=== PATIENT | male | born 1950 | race Caucasian/White ===

== ENCOUNTER 2022-07-22 05:18 | Observation (INO) ==
--- NOTE | 2022-07-07 08:39 | PAT Medication Instructions ---
Medication Instructions Date of Service July 07, 2022 Home Medications Medication Instructions Recorded Meagan Gilliland #1 ea 03/31/22 ascorbate calcium (vitamin C) 500 mg tablet 500 mg PO QAM aspirin 81 mg tablet,delayed release (Adult Low Dose Aspirin) 81 mg PO HS coenzyme Q10 75 mg capsule (Ultra CoQ10) 75 mg PO QPM krill oil 500 mg capsule 500 mg PO QAM lisinopril 20 mg tablet 20 mg PO QAM multivitamin 1 tab PO QAM atenolol 25 mg tablet 25 mg PO QAM simvastatin 10 mg tablet 10 mg PO HS zinc 50 mg tablet 50 mg PO QAM STOP taking 2 weeks before surgery (or as soon as possible if surgery is within 2 weeks) coenzyme Q10 75 mg capsule (Ultra CoQ10) 75 mg PO QPM krill oil 500 mg capsule 500 mg PO QAM DO NOT take the morning of surgery ascorbate calcium (vitamin C) 500 mg tablet 500 mg PO QAM lisinopril 20 mg tablet 20 mg PO QAM multivitamin 1 tab PO QAM zinc 50 mg tablet 50 mg PO QAM Take morning of surgery With a small sip of water, OTHERWISE NOTHING TO EAT OR DRINK AFTER MIDNIGHT: atenolol 25 mg tablet 25 mg PO QAM Take evening before surgery aspirin 81 mg tablet,delayed release (Adult Low Dose Aspirin) 81 mg PO HS (continue as normal unless told otherwise by surgeon) simvastatin 10 mg tablet 10 mg PO HS Other Notes If you have any questions please call us at [phone] or [phone] or [phone] or [phone]
--- NOTE | 2022-07-08 09:21 | Anesthesiology Consultation ---
Date of Service July 08, 2022 Assessment & Plan (1) Encounter for pre-operative examination: - COVID screening: Per assessment on 07/08: No known COVID-19 positive contacts or current COVID-19 related symptoms. Travel screen- return from [place] 07/07. Patient vaccinated. At surgeon discretion if preop Covid testing being done. - Outpatient joint assessment: Pt currently scheduled for inpatient pathway. If surgeon requests review for outpatient joint pathway, patient is an acceptable candidate for outpatient joint program from anesthesia standpoint pending surgeon's office assessment that patient is motivated, has good support and completes [facility] Day Joint Program preop requirements. Chart Review Chart Review: Acceptable Risk for Surgery and Patient seen in Pre Admission Testing Teaching & Discussion Pre-Anesthesia Teaching/Discussion Notes: Instructed NPO after midnight before surgery,except medications with 15 cc of water. Medication instructions provided according to the PAT guidelines. History Surgery Operation Date: 07/22/22 07:00 Proposed Procedures p Right Total Knee Arthroplasty - Audi Olivas MD Height/Weight Height: 5 ft 11 in Weight: 95.1 kg Allergies Allergy/AdvReac Type Severity Reaction Status Date / Time No Known Allergies Allergy Unverified 07/04/22 11:00 Medications Home Medications Medication Instructions Recorded Confirmed Last Taken ascorbate calcium (vitamin C) 500 500 mg PO QAM 06/26/20 07/04/22 Unknown mg tablet aspirin 81 mg tablet,delayed 81 mg PO HS 06/26/20 07/04/22 Unknown release (Adult Low Dose Aspirin) coenzyme Q10 75 mg capsule (Ultra 75 mg PO QPM 06/26/20 07/04/22 Unknown CoQ10) krill oil 500 mg capsule 500 mg PO QAM 06/26/20 07/04/22 Unknown lisinopril 20 mg tablet 20 mg PO QAM 06/26/20 07/04/22 Unknown multivitamin 1 tab PO QAM 06/26/20 07/04/22 Unknown Wheeled Walker #1 ea 03/31/22 03/31/22 Unknown atenolol 25 mg tablet 25 mg PO QAM 07/04/22 07/04/22 Unknown simvastatin 10 mg tablet 10 mg PO HS 07/04/22 07/04/22 Unknown zinc 50 mg tablet 50 mg PO QAM 07/04/22 07/04/22 Unknown Past Medical History Medical History Arthritis of knee, right Hyperlipidemia Hypertension Exercise / Class Metabolic Activity II 4-5 Yardwork/Stairs/Walk up hill Past Family History Family History Other Coronary heart disease Past Surgical History Surgical History H/O arthroscopy of right knee History of appendectomy Hx of bilateral inguinal hernia repair Hx of colonoscopy Hx of hand surgery x2 Past Anesthesia History No Hx of Anesthesia Complications and No Family Hx of Anesthesia Complications History of PONV No Hx of PONV and Hx of Motion Sickness (+ boats) Social History Smoking Status: Never smoker Do You Dip or Chew Tobacco: No Hx Alcohol Use: No Hx Substance Use: No substance use type: does not use Review of Systems Patient denies chest pain, shortness of breath, dyspnea on exertion, fever, chills, cough, wheezing, palpitations. Physical Exam Vital Signs VITALS BP 143/70 P 86 TEMP 98.3 SP02 98%RA RESP 16 PHYSICAL Full cervical extension range of motion. Full TMJ range of motion. TMD 3 finger breaths Mallampati Score 3 Dentition: missing molars Lungs: clear throughout to auscultation Cardiac: regular rate and rhythm, no murmurs noted Spine: normal Carotid arteries: negative bruit Extremities: no edema Lab Results Anesthesia Preop Results Results Anesthesia Widget: WBC 8.18 K/ul (4.8-10.8) 07/08/22 Hgb 16.2 g/dl (14.0-18.0) 07/08/22 Hct 44.9 % (42.0-52.0) 07/08/22 Plt 257 K/uL (130-400) 07/08/22 PT 10.9 Seconds (9.0-12.0) 07/08/22 PTT 32.2 Seconds (21.0-31.0) H 07/08/22 INR 1.0 (0.9-1.1) 07/08/22 Blood Type O Positive 07/08/22 Antibody Screen NEGATIVE 07/08/22 Testing Laboratory Results 05/28/22 SODIUM 142 POTASSIUM 4.0 CHLORIDE 99 CO2 32 BUN 22 CREATININE 1.1 GLUCOSE 143 Electrocardiogram Date: 07/08/22 NSR at 78bpm. Chest X-Ray Date: 07/08/22 FINDINGS: No lines and tubes are seen. Calcified aortic knob is seen. The lungs are clear. No evidence of pleural effusion or pneumothorax. IMPRESSION: No acute chest disease. COVID-19 Risk Screen Screening Information COVID-19 Screen Date: 07/08/22 Exposure 21 Days Family/Household +COVID Last 21 Days: No Exposure 10 Days Any COVID Exposure Last 10 Days: No Symptoms Last 10 Days Experienced COVID Sx Last 10 Days: No + COVID 0-90 Days COVID + in Last 0-90 Days: No
--- NOTE | 2022-07-19 13:21 | History and Physical Report ---
CHIEF COMPLAINT: Bilateral knee pain and discomfort, right side greater than left. HISTORY OF PRESENT ILLNESS: The patient is a 72-year-old gentleman who presents for surgical treatme nt of his knees. He has got a long history of bilateral knee pain and discomfort and describes it as worse over time. The right knee bothers him more than the left. He describes global pain. The mor e he walks, the more it hurts. He has difficulty maintaining an active lifestyle. He is looking at both knees fixed. He has had injections, which helped for a couple of weeks at best. He does have a history of right knee scope in the past. PAST MEDICAL HISTORY: Significant for hypertension. PAST SURGICAL HISTORY: Includes: 1. Right knee arthroscopy. 2. Herniorrhaphy x2. 3. Appendectomy. ALLERGIES: None. CURRENT MEDICATIONS: Include 1. Vitamin C 2. Multivitamin. 3. Krill oil. 4. Coenzyme Q 5. Lisinopril. 6. Atenolol. 7. Simvastatin. 8. Aspirin. 9. Zinc. SOCIAL HISTORY: A 72-year-old male. He is . Rare alcohol intake. Does not smoke. FAMILY HISTORY: Significant for heart disease. REVIEW OF SYSTEMS: Negative for diabetes. Denies any neurologic problem, vascular problems or bleed ing disorders. No chest pain or shortness of breath. No history of DVT or PE. No known bleeding pr oblems. PHYSICAL EXAM: GENERAL: Shows a pleasant, healthy 72-year-old gentleman. Looks younger than his stated age. HEENT: Benign. NECK: Supple, with no lymphadenopathy. LUNGS: Clear to auscultation. HEART: Has a regular rate and rhythm. ABDOMEN: Soft, nontender, nondistended. EXTREMITIES: Grossly neurovascularly intact except as follows. Examination of the right knee reveals the patient walks with a slight bit of a limp. He has got varu s alignment to his knee. Does not increase with weightbearing. He is tender over the medial joint l ine. Small knee effusion. He has got bony hypertrophy medially. Range of motion is 5 to about 90 d egrees. He is pretty stiff in flexion. No particular pain with hip motion. Examination of the left knee reveals similar varus deformity. Mild tenderness medially. Small knee effusion. Range of motion is 5 to 90. No pain with hip motion. X-RAYS: X-rays of both knees were reviewed. It shows advanced bilateral knee DJD. He has got trico mpartment disease. The right side is a bit worse than the left. He has got complete joint space gianna rowing medially and osteophytes medially. He has got some chondrocalcinosis as well. ASSESSMENT: A 72-year-old male with history of right knee arthroscopy in the past with advanced bila teral knee degenerative joint disease. The right is a bit worse than the left. He would like to pro ceed with surgical management. PLAN: We are going to proceed with right total knee replacement. The risks and benefits of this pro cedure were explained to the patient and include but not limited to DVT, PE, , infection, neurol ogical injury, vascular injury, bleeding problem, pain, limited range of motion, stiffness, incomplet e relief of symptoms, need for further surgery in the future. The patient understands and desires to proceed. Informed consent was obtained. As far as discharge plans, he is planning to be discharged to home using [facility] bo Will use aspirin for DVT prophylaxis. He will be seen back in my clinic 2 weeks postop. Job ID: [id number]
[2022-07-22] MEDS ORDERED: METOCLOPRAMIDE HCL 10 MG TABLET PO SCH (06:00)
[2022-07-22] MEDS ORDERED: CeleBREX 200 MG CAP PO SCH (06:00)
[2022-07-22] MEDS ORDERED: FAMOTIDINE 20 MG TAB PO SCH (06:00)
[2022-07-22] MEDS ORDERED: ACETAMINOPHEN 500 MG TAB PO SCH (06:00)
[2022-07-22] MEDS ORDERED: BUPIVACAINE LIPOSOME/PF 266 MG, BUPIVACAINE/EPINEPHRINE 50 ML, SODIUM CHLORIDE 0.9% 30 ... INFIL SCH (06:00)
[2022-07-22] MEDS ORDERED: ceFAZolin 2000MG 2,000 MG/15 ML SYR IV SCH (06:00)
[2022-07-22] MEDS ORDERED: LR 500ML BOLUS, THEN 15ML/HR IV SCH (06:00)
[2022-07-22] MEDS ORDERED: TRANEXAMIC ACID 1,000 MG **IV Intra-op IV SCH (06:00)
[2022-07-22] MEDS ORDERED: LR 60ML/HR IV SCH (06:00)
[2022-07-22] MEDS ORDERED: BUPIVACAINE 0.25% 30 ML VIAL ONE (06:18)
[2022-07-22] MEDS ORDERED: BUPIVACAINE 0.5 % 5 MG/1 ML PF 10ML VIAL ONE (06:18)
[2022-07-22] MEDS ORDERED: PROPOFOL IV EMULSION 10 MG/ML 20 ML VIAL IV ONE ×2 (06:38→07:36)
[2022-07-22] MEDS ORDERED: MIDAZOLAM HCL 1 MG/ML 2ML VIAL ONE (06:38)
[2022-07-22] MEDS ORDERED: ONDANSETRON INJ 2 MG/ML 2 ML VIAL ONE (06:38)
[2022-07-22] MEDS ORDERED: LIDOCAINE 2% MPF LOCAL 5 ML VIAL INFIL ONE (06:38)
[2022-07-22] MEDS ORDERED: BUPIVACAINE/EPINEPHRINE 0.25% 1:200,000 30 ML VIAL ONE (06:48)
[2022-07-22] MEDS ORDERED: BUPIVACAINE LIPOSOME 1.3% 266 MG/20 ML VIAL ONE (06:49)
--- NOTE | 2022-07-22 06:49 | History & Physical Bridge Note ---
Date of Service July 22, 2022 History & Physical Bridge Note I have examined the patient, reviewed the History & Physical and in the interval since the performance of the History & Physical I have noted the following changes of clinical significance: no changes noted
[2022-07-22] MEDS ORDERED: SODIUM CHLORIDE 0.9% PF 50 ML VIAL ONE (06:50)
--- NOTE | 2022-07-22 07:02 | Anesthesiology Consultation ---
Date of Service July 22, 2022 Assessment & Plan (1) Encounter for pre-operative examination: Chart Review Chart Review: Acceptable Risk for Surgery and Patient NOT seen in Pre Admission Testing Consults Requested none History Surgery Operation Date: 07/22/22 07:00 Proposed Procedures p Right Total Knee Arthroplasty - Audi Olivas MD Height/Weight Height: 5 ft 11 in Weight: 94.393 kg Allergies Allergy/AdvReac Type Severity Reaction Status Date / Time No Known Allergies Allergy Verified 07/22/22 05:51 Medications Home Medications Medication Instructions Recorded Confirmed Last Taken ascorbate calcium (vitamin C) 500 500 mg PO QAM 06/26/20 07/22/22 07/08/22 mg tablet aspirin 81 mg tablet,delayed 81 mg PO HS 06/26/20 07/22/22 07/21/22 22:00 release (Adult Low Dose Aspirin) coenzyme Q10 75 mg capsule (Ultra 75 mg PO QPM 06/26/20 07/22/22 07/08/22 CoQ10) krill oil 500 mg capsule 500 mg PO QAM 06/26/20 07/22/22 07/08/22 lisinopril 20 mg tablet 20 mg PO QAM 06/26/20 07/22/22 07/21/22 10:00 multivitamin 1 tab PO QAM 06/26/20 07/22/22 07/08/22 Wheeled Walker #1 ea 03/31/22 03/31/22 Unknown atenolol 25 mg tablet 25 mg PO QA 07/04/22 07/22/22 07/22/22 04:15 simvastatin 10 mg tablet 10 mg PO 07/04/22 07/22/22 07/21/22 22:00 zinc 50 mg tablet 50 mg PO QA 07/04/22 07/22/22 07/08/22 acetaminophen 500 mg capsule 1,000 mg PO TID 30 days #180 caps 07/20/22 07/22/22 Unknown aspirin 81 mg tablet,delayed 81 mg PO BID 45 days #90 tabs 07/20/22 07/22/22 Unknown release (Eusebia Low Dose Aspirin) cefadroxil 500 mg capsule 500 mg PO BID 7 days #14 caps 07/20/22 07/22/22 Unknown ketorolac 10 mg tablet 10 mg PO Q6 Pain 5 days #20 tabs 07/20/22 07/22/22 Unknown ondansetron HCl 4 mg tablet 4 mg PO Q6 PRN nausea #20 tabs 07/20/22 07/22/22 Unknown oxycodone 5 mg tablet 5 - 10 mg PO Q6 PRN pain #40 tabs 07/20/22 07/22/22 Unknown sennosides 8.6 mg-docusate sodium 1 tab-cap PO BID 14 days #28 tabs 07/20/22 07/22/22 Unknown 50 mg tablet (Senokot-S) tamsulosin 0.4 mg capsule (Flomax) 0.4 mg PO DAILY #7 caps 07/20/22 07/22/22 Unknown Active Medications Generic Name Dose Route Start Last Admin Trade Name Freq PRN Reason Stop Dose Admin Acetaminophen 1,000 mg 07/22/22 06:00 07/22/22 05:58 Acetaminophen 500 Mg Tab PO 07/22/22 18:00 1,000 mg PREOP JACKLYN Administration Celecoxib 200 mg 07/22/22 06:00 07/22/22 05:58 Celebrex 200 Mg Cap PO 07/22/22 18:00 200 mg PREOP JACKLYN Administration Famotidine 20 mg 07/22/22 06:00 07/22/22 05:58 Famotidine 20 Mg Tab PO 07/22/22 18:00 20 mg PREOP JACKLYN Administration Lactated Ringer's 1,000 mls @ 15 mls/hr 07/22/22 06:00 07/22/22 05:58 Lr IV 07/22/22 18:00 15 mls/hr .Q24H JACKLYN Administration Lactated Ringer's 1,000 mls @ 60 mls/hr 07/22/22 06:00 07/22/22 05:57 Lr IV 07/22/22 22:39 Not Given .[id number] JACKLYN Metoclopramide HCl 10 mg 07/22/22 06:00 07/22/22 05:58 Metoclopramide Hcl 10 Mg Tablet PO 07/22/22 18:00 10 mg PREOP JACKLYN Administration NPO Date Last Intake of Fluids: 07/21/22 Time Last Intake of Fluids: 22:00 Date Last Intake of Solids: 07/21/22 Time Last Intake of Solids: 22:00 Past Medical History Medical History Arthritis of knee, right Hyperlipidemia Hypertension Exercise / Class Metabolic Activity II 4-5 Yardwork/Stairs/Walk up hill Past Family History Family History Other Coronary heart disease Past Surgical History Surgical History H/O arthroscopy of right knee History of appendectomy Hx of bilateral inguinal hernia repair Hx of colonoscopy Hx of hand surgery x2 Past Anesthesia History No Hx of Anesthesia Complications and No Family Hx of Anesthesia Complications History of PONV No Hx of PONV and No Hx of Motion Sickness Social History Smoking Status: Never smoker Do You Dip or Chew Tobacco: No Hx Alcohol Use: No Hx Substance Use: No substance use type: does not use Physical Exam Vital Signs Last Vital Signs Temp 36.9 C 07/22/22 05:35 Pulse 74 07/22/22 05:35 Resp 18 07/22/22 05:35 BP 140/85 07/22/22 05:35 Pulse Ox 97 07/22/22 05:35 O2 Del Method Room Air 07/22/22 05:35 Testing Electrocardiogram Date: 07/08/22 NSR at 78bpm. Chest X-Ray Date: 07/08/22 FINDINGS: No lines and tubes are seen. Calcified aortic knob is seen. The lungs are clear. No evidence of pleural effusion or pneumothorax. IMPRESSION: No acute chest disease.
[2022-07-22] MEDS ORDERED: fentaNYL citrate 100 MCG/2 ML VIAL IV PRN (07:03)
[2022-07-22] MEDS ORDERED: ONDANSETRON INJ 2 MG/ML 2 ML VIAL IV PRN ×2 (07:03→10:18)
[2022-07-22] MEDS ORDERED: ePHEDrine sulfate 50 MG/ML AMP IV PRN (07:03)
[2022-07-22] MEDS ORDERED: ATROPINE SULFATE 0.1 MG/ML 10ML SYR IV PRN (07:03)
[2022-07-22] MEDS ORDERED: DEXAMETHASONE SOD INJ 4 MG/ML VIAL ONE (08:25)
[2022-07-22] MEDS ORDERED: PHENYLEPHRINE 100MCG/ML 5ML SYR ONE (08:25)
--- NOTE | 2022-07-22 08:56 | Operative Report ---
PG Post Operative Report Pre & Post Diagnosis Operation Date: 07/22/22 07:00 Pre-Op Diagnosis: Right Knee Degenerative Joint Disease Post-Op Diagnosis: Right Knee Degenerative Joint Disease I identified the patient and participated in the time-out.: Yes Procedure Operation Date: 07/22/22 07:00 Actual Procedures p Right Total Knee Arthroplasty(Right) - Audi Olivas MD Surgeon Audi Olivas MD [employer] Ibrahima Stein PA-C Estimated Blood Loss 50 Findings Consistent with Post-Op Diagnosis Operative findings revealed advanced right knee tricompartment DJD in all 3 compartments. He had a very stiff knee with about a 10 to 15 degree flexion contracture and only 90 degrees of flexion. He had a fixed varus deformity to his knee. Osteophytes in all 3 compartments. Specimens Right knee sent for pathology Drains None Anesthesia Type Spinal MAC Complications none Disposition Accompanied Patient To Recovery: No Indications Patient is a 72-year-old gentleman said a long history of bilateral knee pain discomfort describes gotten worse over time. Is been through extensive conservative treatment over the years which just did not help anymore. X-rays show progressive knee arthritis. He developed a very stiff knee. He elected to surgical treatment. Description of Procedure Operative implants consist of: 1. Biomet Vanguard size 72.5 right posterior stabilized femoral component. 2. Biomet size 79 tibial tray. 3. 12 mm posterior stabilized polyethylene insert. 4. 34 x 8.5 all poly patella. The patient was taken to the operating, identified, placed on the operating table supine position. All contact areas were appropriately padded. IV antibiotics tried by anesthesia team. A spinal anesthetic and abductor canal block had been provided in the holding area. A Melissa catheter was placed in sterile fashion. Right thigh tent was then placed in the right lower extremity was then prepped and draped in the usual sterile fashion. The right leg was elevated and exsanguinated with the use of an Esmarch and the tourniquet was placed at 300 mmHg. An anterior process of the right knee was t hen performed to longitudinal incision centered over the patella. Sharp dissection was Through subcutaneous tissues down to the extensor mechanism. A medial parapatellar arthrotomy incision was made. Some subperiosteal dissection was carried out medially. I did an extensive medial and posterior medial release releasing all of his hamstring tendons posteriorly in order to correct his varus deformity. The fat pad was resected from Neath patella tendon. Lateral patellofemoral ligament was released. Patella subluxated laterally and the knee was flexed. The osteophyte taken off distal femur. The ACL and PCL were then released and the distal femur the tibia subluxated anteriorly. The external tibial alignment jig was then placed in the interface the tibia and adjusted 16 mm medially. Proximal tibial cut was made and it was essentially flush with the most deficient aspect of the posterior medial tibial plateau. Some osteophytes taken off medial and posterior medially. Tibia sized to a size 79. Attention drawn the femur. The distal femur was then with a sharp drill. The intramedullary canal was suction. A right 6 degree valgus cutting guide was placed. This femoral cuttin g block was pinned in place. Distal femoral cut was made to take an additional 3 mm of bone off distal femur. The femur was then sized to a size 72.5. The AP cutting block was pinned parallel to the epicondylar axis which was 3 degrees of external rotation. The anterior cut, anterior chamfer, posterior cut, posterior chamfer cuts were made. The box cutting guide was placed and adjusted slightly laterally. The box cut was made. The knee was flexed. The remnants of the medial and lateral menisci were excised. The osteophytes were taken off the posterior aspect the femur. Trial femoral component was placed. Tibial tray was pinned in maximum external rotation and the drill and stem punch used to create defect in proximal tibia for the tibial tray. Knee was then trialed and the 12 mm insert fit most appropriately. Attention drawn the patella. The patella was cleaned of all soft tissues. Patella thickness measured 25 mm in thickness was cut down to 15. It was sized to a size 34 patella. The lug holes were drilled for the 34 patella. The lateral osteophyte was removed. Patella button was placed. Knee was taken through range of motion patella tracked nicely with no thumbs test. Attention drawn to placing permanent components. Nupathe all trial components were removed. Bone plug was placed in the distal femur limit blood loss. Double batch Palacos G cement was mixed. A Biomet Vanguard size 72.5 right posterior stabilized femoral component, a size 79 tibial tray, a 12 mm posterior stabilized polyethylene insert, and a 34 x 8 and half all Paller patella then cemented in place. Knee was brought out into full extension till cement hardened. Final cement check was then performed. Pericapsular tissues were injected with total of 100 cc of combination of 20 cc of Exparel, 30 cc normal saline, 50 cc of quarter percent Marcaine with epinephrine. Patient did receive 1 g tranexamic acid but the tourniquet was let down for final tourniquet time of 64 minutes. Hemostasis assured use electrocautery. Extensor mechanism closed with combination 1 PDS suture in #1 Vicryl suture in a [id number] fashion. The extensor mechanism was checked and found to be intact with subcutaneous tissue then closed with 2 Dexon suture in buried interrupted fashion skin was closed skin randall. Leg was then cleaned and dried and sterile dressing was Xeroform, 4 fours, sterile cast padding, ABD pad, sterile Dwight bandage were applied. Patient then transferred to the recovery room in stable condition. Patient tolerated procedure well and there were no complications. Ibrahima Stein, my physician physical therapy assistant, was present for the entire procedure. His assistance was essential and required for appropriate patient positioning, prepping and draping, surgical exposure, performing the technical details of the operation, placement the implants, closure of the wound, and placement of the sterile bandage. I attest to the content of the Intraoperative Record and any orders documented therein. Any exceptions are noted below.
--- NOTE | 2022-07-22 09:56 | XRay Report ---
RIGHT KNEE 2 VIEWS History: Right total knee arthroplasty. Degenerative arthritis. Postop. FINDINGS: The patient is status post a right total knee arthroplasty. The hardware is intact. No frac ture or dislocation. Skin randall are in place. IMPRESSION: Right total knee arthroplasty. No evidence for hardware complication. ACT 112: Negative or not required by law. Electronically signed by: Bennett Nam M.D. 07/22/2022 9:54 AM
[2022-07-22] MEDS ORDERED: MAGNESIUM HYDROXIDE SUSP 30 ML UDC PO PRN (10:18)
[2022-07-22] MEDS ORDERED: METOCLOPRAMIDE HCL INJ 5 MG/ML 2 ML VIAL IV PRN (10:18)
[2022-07-22] MEDS ORDERED: NON-FORMULARY MEDICATION (Multivitamin tablet) PO SCH (10:18)
[2022-07-22] MEDS ORDERED: NALOXONE HCL 0.4 MG/1 ML VIAL/CARP IV PRN (10:18)
[2022-07-22] MEDS ORDERED: DOCUSATE SODIUM 100 MG CAP PO SCH (10:18)
[2022-07-22] MEDS ORDERED: bisacodyL 10 MG SUPP PR PRN (10:18)
[2022-07-22] MEDS ORDERED: HYDROmorphone INJ 0.5 MG/0.5 ML SYR IV PRN (10:18)
[2022-07-22] MEDS ORDERED: oxyCODONE HCL IR 5 MG TAB (IMMEDIATE RELEASE) PO PRN (10:18)
[2022-07-22] MEDS ORDERED: ALUMINUM/MAGNESIUM SUSP 30 ML UDC PO PRN (10:18)
[2022-07-22] MEDS ORDERED: NON-FORMULARY MEDICATION (Krill Oil 500 mg capsule) PO SCH (10:18)
[2022-07-22] MEDS ORDERED: ASCORBIC ACID 500 MG TAB PO SCH (11:00)
[2022-07-22] MEDS: SODIUM CHLORIDE 0.9% 1000ML 1,000 ML IV SCH ×2 (11:09→21:38)
[2022-07-22] MEDS: lisinopril 20 MG TAB PO SCH (11:10)
[2022-07-22] MEDS: ASPIRIN 81 MG ECTAB PO SCH ×2 (11:10→21:40)
[2022-07-22] MEDS: KETOROLAC TROMETHAMINE 15 MG/ML VIAL IV SCH ×3 (11:11→23:17)
[2022-07-22] MEDS: DOCUSATE SODIUM/SENNA 50/8.6MG TAB PO SCH ×2 (11:11→21:40)
[2022-07-22] MEDS: ZINC SULFATE 220 MG CAPSULE PO SCH (11:11)
[2022-07-22] MEDS: TAMSULOSIN HCL 0.4 MG CAP PO SCH (11:11)
[2022-07-22] MEDS: MULTIVITAMIN TAB PO SCH (11:11)
--- NOTE | 2022-07-22 13:54 | Anesthesiology Progress Note ---
Date of Service July 22, 2022 Anesthesia Post Procedure Vital Signs Vital Signs: Temp Pulse Pulse Resp BP Pulse Ox O2 Del Method 07/22/22 13:10 36.7 C 76 16 112/68 95 Room Air 07/22/22 12:10 36.5 C 70 16 111/69 96 Room Air 07/22/22 11:08 36.4 C L 67 18 105/65 97 Room Air 07/22/22 10:40 36.4 C L 66 16 108/59 L 96 Room Air 07/22/22 10:10 36.5 C 67 16 109/63 96 Room Air 07/22/22 09:55 36.9 C 67 15 104/63 96 Room Air 07/22/22 09:45 70 21 108/68 96 Room Air 07/22/22 09:35 68 14 108/62 97 Room Air 07/22/22 09:25 70 15 102/66 95 Room Air 07/22/22 09:15 72 18 112/59 L 98 Oxymask 07/22/22 09:05 73 16 126/68 100 Oxymask 07/22/22 08:56 36.0 C L 80 15 116/64 98 Oxymask 07/22/22 05:35 36.9 C 74 18 140/85 97 Room Air O2 Flow Rate 07/22/22 13:10 07/22/22 12:10 07/22/22 11:08 07/22/22 10:40 07/22/22 10:10 07/22/22 09:55 07/22/22 09:45 07/22/22 09:35 07/22/22 09:25 07/22/22 09:15 6 07/22/22 09:05 10 07/22/22 08:56 10 07/22/22 05:35 Pain Intensity Right Knee: Pain Intensity: 0 Transfer of Care Handoff Completed per policy Notes Mental Status: alert / awake / arousable and participated in evaluation Patient Amnestic to Procedure: Yes Nausea / Vomiting: adequately controlled Pain: adequately controlled Airway Patency, RR, SpO2: stable & adequate BP & HR: stable & adequate Hydration State: stable & adequate Neuraxial Anesthesia: was administered and sensory block is resolving Anesthetic Complications: no major complications apparent and Pt Satisfied with anesthetic care
[2022-07-22] MEDS: ceFAZolin 2000MG 2,000 MG/15 ML SYR IV SCH ×2 (14:16→23:16)
[2022-07-22] MEDS: ACETAMINOPHEN 500 MG TAB PO SCH ×2 (14:17→21:40)
[2022-07-22] MEDS ORDERED: TRANEXAMIC ACID / 0.7% NACL 1,000 MG/100 ML BAG IV SCH (15:00)
[2022-07-22] MEDS: ASCORBIC ACID 500 MG TAB PO SCH (16:52)
[2022-07-22] MEDS ORDERED: SIMVASTATIN 10 MG TAB PO SCH (21:00)
[2022-07-22] MEDS ORDERED: SENNA 8.6 MG TAB PO SCH (21:00)
[2022-07-22] MEDS ORDERED: NON-FORMULARY MEDICATION (Coenzyme Q10 [Ultra Coq10] 75 mg capsule) PO SCH (21:00)
[2022-07-23] MEDS: KETOROLAC TROMETHAMINE 15 MG/ML VIAL IV SCH ×2 (04:01→11:26)
[2022-07-23] MEDS: ACETAMINOPHEN 500 MG TAB PO SCH (05:12)
[2022-07-23 06:55] LABS: Hematocrit (blood only) 34.5 % (42.0-52.0); Hemoglobin 12.4 g/dl (14.0-18.0); Mean Corpuscular Hemoglobin 31.3 pg (25.0-34.0); Mean Corpuscular Hgb Conc 35.9 g/dL (32.0-36.0); Mean Corpuscular Volume 87.1 fL (80.0-100.0); Mean Platelet Volume 10.2 fL (9.4-12.4); Platelet Count 209 K/uL (130-400); RDW Coefficient of Variation 12.4 % (11.5-14.5); RDW Standard Deviation 39.7 fL (36.4-46.3); Red Blood Count 3.96 M/uL (4.70-6.10); White Blood Count 17.26 K/ul (4.8-10.8)
[2022-07-23 07:02] LABS: BUN Creatinine Ratio 19.8 (10-20); Calcium 8.7 mg/dl (8.5-10.1); Creatinine Clr Calc Pharmacy 79.8 ml/min; Est GFR (African American) 86.9 ml/min; Potassium 3.7 mmol/L (3.5-5.1)
[2022-07-23] MEDS ORDERED: dexAMETHasone 10 MG in SYRINGE 0 ML IV SCH (08:00)
[2022-07-23] MEDS: ASCORBIC ACID 500 MG TAB PO SCH (08:37)
[2022-07-23] MEDS: lisinopril 20 MG TAB PO SCH (08:37)
[2022-07-23] MEDS: DOCUSATE SODIUM/SENNA 50/8.6MG TAB PO SCH (08:37)
[2022-07-23] MEDS: ZINC SULFATE 220 MG CAPSULE PO SCH (08:37)
[2022-07-23] MEDS: TAMSULOSIN HCL 0.4 MG CAP PO SCH (08:38)
[2022-07-23] MEDS: MULTIVITAMIN TAB PO SCH (08:38)
[2022-07-23] MEDS: ASPIRIN 81 MG ECTAB PO SCH (08:38)
[2022-07-23] MEDS ORDERED: ATENOLOL 25 MG TABLET PO SCH (09:00)
--- NOTE | 2022-07-23 11:13 | Progress Notes ---
DATE OF SERVICE: 07/23/2022. SUBJECTIVE: A 72-year-old gentleman postoperative day 1 from right knee replacement. He is doing we ll. Therapy went well this morning. No chest pain or shortness of breath. Not feeling dizzy or lig htheaded. Hoping to go home. OBJECTIVE: VITAL SIGNS: Temperature 36.6. Vital signs are stable. GENERAL: Physical examination shows a pleasant middle-aged male. He is sitting up in a bedside evert r, looks comfortable. LUNGS: Clear to auscultation. HEART: Regular rate and rhythm. ABDOMEN: Soft, nontender, nondistended. EXTREMITIES: Grossly neurovascularly intact except as follows. Examination of the right leg reveals the dressing to be clean, dry, and intact. He can dorsiflex and plantarflex his foot appropriately. He is neurologically intact. LABORATORY DATA: Hemoglobin 12.4. Hematocrit 34.5. White cell count is 17.26. Electrolytes are st able. ASSESSMENT: A 72-year-old gentleman postoperative day 1 from right knee replacement, doing pretty we ll. Pain is controlled. He is neurologically intact. White cell count slightly elevated due to str ess along with the prednisone/Decadron given around surgery time. PLAN: 1. DVT prophylaxis includes thigh-high TEDs, SCDs, and aspirin twice a day. 2. PT/OT, weightbear as tolerated. Right total knee protocol. 3. Pain control, doing okay with current pain regimen. 4. Disposition: Plan to discharge to home with some home health later today. Job ID: [id number]
--- NOTE | 2022-07-27 06:10 | Discharge Summary ---
Date of Service July 27, 2022 Discharge Data Procedures Performed Operation Date: 07/22/22 07:00 Actual Procedures p Right Total Knee Arthroplasty(Right) - Audi Olivas MD Hospital Course (1) Status post total right knee replacement: This is a 72 year old patient admitted on 07/22/22 and underwent total knee arthroplasty. He tolerated the procedure well and there were no complications. Transferred to the PACU post op and later to the orthopedic floor for further care. He was given ancef for antibiotic prophylaxis. He was also given LULU stockings, SCDs, and aspirin for DVT prophylaxis. Hemoglobin, hematocrit, and vital signs were monitored during his hospital stay and remained stable. Did not require any blood transfusions. There were no complications during his hospital stay. By post op day #1 the patient was tolerating a regular diet, pain was reasonably controlled with oral pain medicine, and he was participating in physical therapy. On post op day #1 the patient was discharged home and set up with home health care. He was given printed discharge instructions including prescriptions for extra strength tylenol, aspirin, cefadroxil, ketorolac, zofran, senokot, flomax, and oxycodone. Continue physical therapy, weight bearing as tolerated. Continue LULU stockings. Follow up approximately 2 weeks post op or sooner if there are problems or concerns. Coding Level of Care Code None Diagnoses Status post total right knee replacement Z96.651
== END 2022-07-23 13:30 | disposition home health service (06) ==
LOC: ASU 05:18 → 3E 05:18